=== PATIENT | female | born 1985 | race Caucasian/White ===

== ENCOUNTER 2019-07-17 06:56 | Emergency (ER) | payer MEDICAID ==
[2019-07-17 07:29] VITALS: BP 116/57; PULSE 72
--- NOTE | 2019-07-17 07:37 | EDM.PDOC ---
ED HPI GENERAL MEDICAL PROBLEM - General Chief Complaint: ENT Problem Stated Complaint: SORE THROAT AND COUGHING Time Seen by Provider: 07/17/19 07:27 - History of Present Illness INITIAL COMMENTS - FREE TEXT/NARRATIVE: HISTORY AND PHYSICAL: History of present illness: Patient is a 34-year-old white female presents with concern of sore throat sinus congestion and discomfort over last 4-5 days. She denies fever chills nausea vomiting or other complaints she states she had similar episodes in the past related to sinusitis. Review of systems: As per history of present illness and below otherwise all systems reviewed and negative. Past medical history: As per history of present illness and as reviewed below otherwise noncontributory. Surgical history: As per history of present illness and as reviewed below otherwise noncontributory. Social history: No reported history of drug or alcohol abuse. Family history: As per history of present illness and as reviewed below otherwise noncontributory. Physical exam: HEENT: Atraumatic, normocephalic, pupils reactive, negative for conjunctival pallor or scleral icterus, mucous membranes moist, throat injected, neck supple , nontender, trachea midline. Tenderness over maxillary and frontal sinuses to percussion Lungs: Clear to auscultation, breath sounds equal bilaterally, chest nontender. Heart: S1S2, regular, negative for clicks, rubs, or JVD. Abdomen: Soft, nondistended, nontender. Negative for masses or hepatosplenomegaly. Negative for costovertebral tenderness. Pelvis: Stable nontender. Genitourinary: Deferred. Rectal: Deferred. Extremities: Atraumatic, negative for cords or calf pain. Neurovascular unremarkable. Neuro: Awake, alert, oriented. Cranial nerves II through XII unremarkable. Cerebellum unremarkable. Motor and sensory unremarkable throughout. Exam nonfocal. Diagnostics: None Therapeutics: None Impression: #1 sinusitis #2 pharyngitis Definitive disposition and diagnosis as appropriate pending reevaluation and review of above. Nare Pain Score (Numeric/FACES): 4 - Related Data Allergies Allergy/AdvReac Type Severity Reaction Status Date / Time amoxicillin Allergy Hives Verified 02/04/19 19:27 Penicillins Allergy Hives Verified 02/04/19 19:27 Home Meds: Home Meds Omeprazole Magnesium [Prilosec Otc] 1 tab PO DAILY 06/27/15 [History] Vit No.78/Iron/Fa [Prenatabs FA] 1 tab PO DAILY 06/27/15 [History] ARIPiprazole [Abilify] 2 mg PO DAILY 02/04/19 [History] Cetirizine HCl [Zyrtec] 10 mg PO DAILY 02/04/19 [History] Dextroamphetamine/Amphetamine [Adderall 20 mg Tablet] 20 mg PO BID 02/04/19 [ History] FLUoxetine HCl [Prozac] 40 mg PO DAILY 02/04/19 [History] clonazePAM [Klonopin] 1 mg PO ASDIRECTED 02/04/19 [History] Past Medical History Cardiovascular History: Reports: None Respiratory History: Reports: Asthma Other Gastrointestinal History: Heartburn in pregnancies only Genitourinary History: Reports: None 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 Musculoskeletal History: Hx: fractured wrist, nose Neurological History: Reports: Migraines 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, none for a few years now Psychiatric History: Reports: ADD, Anxiety, Depression, PTSD - Infectious Disease History Infectious Disease History: Reports: Chicken Pox - Past Surgical History HEENT Surgical History: Reports: Adenoidectomy, Tonsillectomy Other HEENT Surgeries/Procedures: Septoplasty Female Surgical History: Reports: Breast Implant, Section Other Musculoskeletal Surgeries/Procedures:: History of Breast Augmentation Social & Family History - Caffeine Use Caffeine Use: Reports: Coffee ED ROS GENERAL - Review of Systems Review Of Systems: ROS reveals no pertinent complaints other than HPI. ED EXAM, GENERAL - Physical Exam Exam: See Below (See dictation) Course - Vital Signs Last Recorded V/S: Last Vital Signs Temp 35.9 C 07/17/19 07:24 Pulse 72 07/17/19 07:24 Resp 18 07/17/19 07:24 BP 116/57 L 07/17/19 07:24 Pulse Ox 99 07/17/19 07:24 Departure - Departure Time of Disposition: 07:36 Disposition: Home, Self-Care 01 Condition: Good Clinical Impression: Sinusitis, Pharyngitis - Discharge Information Referrals: PCP,None [Primary Care Provider] - Additional Instructions: The following information is given to patients seen in the emergency department who are being discharged to home. This information is to outline your options for follow-up care. We provide all patients seen in our emergency department with a follow-up referral. The need for follow-up, as well as the timing and circumstances, are variable depending upon the specifics of your emergency department visit. If you don't have a primary care physician on staff, we will provide you with a referral. We always advise you to contact your personal physician following an emergency department visit to inform them of the circumstance of the visit and for follow-up with them and/or the need for any referrals to a consulting specialist. The emergency department will also refer you to a specialist when appropriate. This referral assures that you have the opportunity for followup care with a specialist. All of these measure are taken in an effort to provide you with optimal care, which includes your followup. Under all circumstances we always encourage you to contact your private physician who remains a resource for coordinating your care. When calling for followup care, please make the office aware that this follow-up is from your recent emergency room visit. If for any reason you are refused follow-up, please contact the [facility] emergency department at and asked to speak to the emergency department charge nurse. Z-Marco as prescribed Tylenol with Codeine as prescribed follow-up primary medical doctor as needed as discussed and return as needed as discussed
== END 2019-07-17 08:20 | disposition home or self-care (01) ==
LOC: MW.ED 06:56
DX: J32.9 Chronic sinusitis, unspecified (principal); J02.9 Acute pharyngitis, unspecified; J45.909 Unspecified asthma, uncomplicated; F32.9 Major depressive disorder, single episode, unspecified; F41.9 Anxiety disorder, unspecified; Z88.0 Allergy status to penicillin; Z79.899 Other long term (current) drug therapy
CPT/HCPCS: 99282; 99283

== ENCOUNTER 2019-08-08 15:49 | Emergency (ER) | payer MEDICAID ==
--- NOTE | 2019-08-08 16:09 | EDM.PDOCBH ---
ED HPI GENERAL MEDICAL PROBLEM - General Chief Complaint: Behavioral/Psych Stated Complaint: panic attack; needs meds refilled Time Seen by Provider: 08/08/19 15:53 Source of Information: Reports: Patient History Limitations: Reports: No Limitations - History of Present Illness INITIAL COMMENTS - FREE TEXT/NARRATIVE: HISTORY AND PHYSICAL: History of present illness: Patient is a 34-year-old female who presents to the emergency room with complaints of anxiety and needing a medication refill. Patient states she has been out of her Klonopin for 3 days and is here in hopes to get this medication refilled. Just prior to my physical examination she states she got off the phone with her primary care provider, Fozia Gomez, who will refill her Klonopin. Patient states she was hoping to get "something right now to take the edge off" until she can go and fill this prescription. She states she has increased stress as she has been fighting with her significant other. Patient denies any fever, chills, headache, change in vision, syncope or near syncope. Denies any chest pain, back pain, shortness of breath or cough. Denies any GI or symptoms. Patient has been eating and drinking appropriately. Review of systems: As per history of present illness and below otherwise all systems reviewed and negative. Past medical history: As per history of present illness and as reviewed below otherwise noncontributory. Surgical history: As per history of present illness and as reviewed below otherwise noncontributory. Social history: See social history for further information Family history: As per history of present illness and as reviewed below otherwise noncontributory. Physical exam: General: Well-developed and well nourished 34-year-old female. Alert and appropriate for age. Nontoxic appearing and in no acute distress. HEENT: Atraumatic, normocephalic, pupils equal and reactive bilaterally, negative for conjunctival pallor or scleral icterus, mucous membranes moist, TMs normal bilaterally, throat clear, neck supple, nontender, trachea midline. No drooling or trismus noted. No meningeal signs. No hot potato voice noted. Lungs: Clear to auscultation, breath sounds equal bilaterally, chest nontender. Heart: S1S2, regular rate and rhythm without overt murmur Abdomen: Soft, nondistended, nontender. Skin: Intact, warm, dry. No lesions or rashes noted. Extremities: Atraumatic, moves all extremities per self without difficulty or deficits, negative for cords or calf pain. Neurovascular unremarkable. Neuro: Awake, alert, oriented. Cranial nerves II through XII unremarkable. Cerebellum unremarkable. Motor and sensory unremarkable throughout. Exam nonfocal. Notes: Will give one tab of Ativan now. She has an appointment on Aug 16 with Patricia. Supportive care measures were reviewed and discussed. Voices understanding and is agreeable to plan of care. Denies any further questions or concerns at this time. Diagnostics: None Therapeutics: Ativan Prescription: None Impression: Anxiety Encounter for medication refill Plan: 1. Please see your primary care provider for further medication refills. 2. Return to the ED as needed and as discussed. Definitive disposition and diagnosis as appropriate pending reevaluation and review of above. - Related Data Allergies Allergy/AdvReac Type Severity Reaction Status Date / Time amoxicillin Allergy Hives Verified 08/08/19 16:05 Penicillins Allergy Hives Verified 08/08/19 16:05 Home Meds: Home Meds Omeprazole Magnesium [Prilosec Otc] 1 tab PO DAILY 06/27/15 [History] Vit No.78/Iron/Fa [Prenatabs FA] 1 tab PO DAILY 06/27/15 [History] ARIPiprazole [Abilify] 2 mg PO DAILY 02/04/19 [History] Cetirizine HCl [Zyrtec] 10 mg PO DAILY 02/04/19 [History] Dextroamphetamine/Amphetamine [Adderall 20 mg Tablet] 20 mg PO BID 02/04/19 [ History] FLUoxetine HCl [Prozac] 40 mg PO DAILY 02/04/19 [History] clonazePAM [Klonopin] 1 mg PO ASDIRECTED 02/04/19 [History] Past Medical History Cardiovascular History: Reports: None Respiratory History: Reports: Asthma Other Gastrointestinal History: Heartburn in pregnancies only Genitourinary History: Reports: None 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 Musculoskeletal History: Hx: fractured wrist, nose Neurological History: Reports: Migraines 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, none for a few years now Psychiatric History: Reports: ADD, Anxiety, Depression, PTSD - Infectious Disease History Infectious Disease History: Reports: Chicken Pox - Past Surgical History HEENT Surgical History: Reports: Adenoidectomy, Tonsillectomy Other HEENT Surgeries/Procedures: Septoplasty Female Surgical History: Reports: Breast Implant, Section Other Musculoskeletal Surgeries/Procedures:: History of Breast Augmentation Social & Family History - Family History Family Medical History: Noncontributory - Tobacco Use Smoking Status *Q: Never Smoker - Caffeine Use Caffeine Use: Reports: Coffee - Recreational Drug Use Recreational Drug Use: No ED ROS GENERAL - Review of Systems Review Of Systems: ROS reveals no pertinent complaints other than HPI. ED EXAM, BEHAVIORAL HEALTH - Physical Exam Exam: See Below (See dictation) COURSE, BEHAVIORAL HEALTH COMP - Course Vital Signs: Last Vital Signs Temp 97.0 F 08/08/19 15:59 Pulse 65 08/08/19 15:59 Resp 18 08/08/19 15:59 BP 130/57 L 08/08/19 15:59 Pulse Ox 100 08/08/19 15:59 Orders, Labs, Meds: Medications Discontinued Medications Generic Name Dose Route Start Last Admin Trade Name Freq PRN Reason Stop Dose Admin Lorazepam 1 mg 08/08/19 16:17 Ativan PO 08/08/19 16:18 ONETIME ONE Departure - Departure Time of Disposition: 16:18 Disposition: Home, Self-Care 01 Clinical Impression: Anxiety, Encounter for medication refill - Discharge Information Instructions: Panic Attack Referrals: PCP,Not In Area [Primary Care Provider] - Forms: ED Department Discharge Additional Instructions: The following information is given to patients seen in the emergency department who are being discharged to home. This information is to outline your options for follow-up care. We provide all patients seen in our emergency department with a follow-up referral. The need for follow-up, as well as the timing and circumstances, are variable depending upon the specifics of your emergency department visit. If you don't have a primary care physician on staff, we will provide you with a referral. We always advise you to contact your personal physician following an emergency department visit to inform them of the circumstance of the visit and for follow-up with them and/or the need for any referrals to a consulting specialist. The emergency department will also refer you to a specialist when appropriate. This referral assures that you have the opportunity for follow-up care with a specialist. All of these measure are taken in an effort to provide you with optimal care, which includes your follow-up. Under all circumstances we always encourage you to contact your private physician who remains a resource for coordinating your care. When calling for follow-up care, please make the office aware that this follow-up is from your recent emergency room visit. If for any reason you are refused follow-up, please contact the [facility] Emergency Department at and asked to speak to the emergency department charge nurse. [facility] [address] [place] [id number] [facility] [address] [place] [id number] 1. Please see your primary care provider for further medication refills. 2. Return to the ED as needed and as discussed.
[2019-08-08] MEDS ORDERED: LORazepam 1 MG Tab PO ONE (16:17)
[2019-08-08 17:12] VITALS: BP 132/76; PULSE 69
== END 2019-08-08 17:09 | disposition home or self-care (01) ==
LOC: MW.ED 15:49
DX: F41.9 Anxiety disorder, unspecified (principal); Z76.0 Encounter for issue of repeat prescription; J45.909 Unspecified asthma, uncomplicated; F32.9 Major depressive disorder, single episode, unspecified; Z88.1 Allergy status to other antibiotic agents
CPT/HCPCS: 99282; A9270

== ENCOUNTER 2019-08-25 17:05 | Emergency (ER) | payer MEDICAID ==
[2019-08-25 17:21] VITALS: PULSE 76
--- NOTE | 2019-08-25 17:23 | EDM.PDOC ---
ED HPI GENERAL MEDICAL PROBLEM - General Chief Complaint: ENT Problem Stated Complaint: SORE THROAT Time Seen by Provider: 08/25/19 17:22 Source of Information: Reports: Patient - History of Present Illness INITIAL COMMENTS - FREE TEXT/NARRATIVE: HISTORY AND PHYSICAL: History of present illness: []Patient presents with recurrent sore throat she has been on 2 rounds of Z-Marco antibiotics , she has had some benefit while on the antibiotic sore throat returned shortly after no fever nausea vomiting chills sweats she does complain of general malaise or muffled voice drooling or trismus Review of systems: As per history of present illness and below otherwise all systems reviewed and negative. Past medical history: As per history of present illness and as reviewed below otherwise noncontributory. Surgical history: As per history of present illness and as reviewed below otherwise noncontributory. Social history: No reported history of drug or alcohol abuse. Family history: As per history of present illness and as reviewed below otherwise noncontributory. Physical exam: HEENT: Atraumatic, normocephalic, pupils reactive, negative for conjunctival pallor or scleral icterus, mucous membranes moist, throat clear, neck supple, nontender, trachea midline. Moderate erythema no exudates Lungs: Clear to auscultation, breath sounds equal bilaterally, chest nontender. Heart: S1S2, regular, negative for clicks, rubs, or JVD. Abdomen: Soft, nondistended, nontender. Negative for masses or hepatosplenomegaly. Negative for costovertebral tenderness. Pelvis: Stable nontender. Genitourinary: Deferred. Rectal: Deferred. Extremities: Atraumatic, negative for cords or calf pain. Neurovascular unremarkable. Neuro: Awake, alert, oriented. Cranial nerves II through XII unremarkable. Cerebellum unremarkable. Motor and sensory unremarkable throughout. Exam nonfocal. Diagnostics: [CBC [place] UA hCG Influenza/strep swabs ] Therapeutics: [Bactrim] Impression: [Pharyngitis ] Definitive disposition and diagnosis as appropriate pending reevaluation and review of above. throat Pain Score (Numeric/FACES): 4 - Related Data Allergies Allergy/AdvReac Type Severity Reaction Status Date / Time amoxicillin Allergy Hives Verified 08/25/19 17:20 Penicillins Allergy Hives Verified 08/25/19 17:20 Home Meds: Home Meds Omeprazole Magnesium [Prilosec Otc] 1 tab PO DAILY 06/27/15 [History] Vit No.78/Iron/Fa [Prenatabs FA] 1 tab PO DAILY 06/27/15 [History] ARIPiprazole [Abilify] 2 mg PO DAILY 02/04/19 [History] Cetirizine HCl [Zyrtec] 10 mg PO DAILY 02/04/19 [History] Dextroamphetamine/Amphetamine [Adderall 20 mg Tablet] 20 mg PO BID 02/04/19 [ History] FLUoxetine HCl [Prozac] 40 mg PO DAILY 02/04/19 [History] clonazePAM [Klonopin] 1 mg PO ASDIRECTED 02/04/19 [History] Past Medical History Cardiovascular History: Reports: None Respiratory History: Reports: Asthma Other Gastrointestinal History: Heartburn in pregnancies only Genitourinary History: Reports: None 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 Musculoskeletal History: Hx: fractured wrist, nose Neurological History: Reports: Migraines 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, none for a few years now Psychiatric History: Reports: ADD, Anxiety, Depression, PTSD - Infectious Disease History Infectious Disease History: Reports: Chicken Pox - Past Surgical History HEENT Surgical History: Reports: Adenoidectomy, Tonsillectomy Other HEENT Surgeries/Procedures: Septoplasty Female Surgical History: Reports: Breast Implant, Section Other Musculoskeletal Surgeries/Procedures:: History of Breast Augmentation Social & Family History - Family History Family Medical History: Noncontributory - Caffeine Use Caffeine Use: Reports: Coffee ED ROS GENERAL - Review of Systems Review Of Systems: See Below ED EXAM, GENERAL - Physical Exam Exam: See Below Course - Vital Signs Last Recorded V/S: Last Vital Signs Temp 97.7 F 08/25/19 17:18 Pulse 76 08/25/19 17:18 Resp 18 08/25/19 17:18 BP 127/56 L 08/25/19 17:18 Pulse Ox 98 08/25/19 17:18 - Orders/Labs/Meds Orders: Active Orders 24 hr Category Date Time Status CULTURE STREP A CONFIRMATION [] Stat Lab 08/25/19 17:34 Results STREP SCRN A RAPID W CULT CONF [] Stat Lab 08/25/19 17:34 Results Labs: Laboratory Tests 08/25/19 08/25/19 08/25/19 Range/Units 17:22 17:22 17:41 WBC 6.92 (4.0-11.0) K/uL RBC 4.42 (4.30-5.90) M/uL Hgb 13.4 (12.0-16.0) g/dL Hct 39.0 (36.0-46.0) % MCV 88.2 (80.0-98.0) fL MCH 30.3 (27.0-32.0) pg MCHC 34.4 (31.0-37.0) g/dL RDW Std Deviation 42.8 (28.0-62.0) fl RDW Coeff of Alvaro 13 (11.0-15.0) % Plt Count 233 (150-400) K/uL MPV 11.00 (7.40-12.00) fL Neut % (Auto) 48.4 (48.0-80.0) % Lymph % (Auto) 35.3 (16.0-40.0) % [place] % (Auto) 8.7 (0.0-15.0) % Eos % (Auto) 6.9 (0.0-7.0) % Baso % (Auto) 0.7 (0.0-1.5) % Neut # (Auto) 3.4 (1.4-5.7) K/uL Lymph # (Auto) 2.4 (0.6-2.4) K/uL [place] # (Auto) 0.6 (0.0-0.8) K/uL Eos # (Auto) 0.5 (0.0-0.7) K/uL Baso # (Auto) 0.1 (0.0-0.1) K/uL Nucleated RBC % 0.0 /100WBC Nucleated RBCs # 0 K/uL Urine Color YELLOW Urine Appearance CLEAR Urine pH 7.0 (5.0-8.0) Ur Specific [place] 1.015 (1.001-1.035) Urine Protein NEGATIVE (NEGATIVE) mg/dL Urine Glucose (UA) NEGATIVE (NEGATIVE) mg/dL Urine Ketones NEGATIVE (NEGATIVE) mg/dL Urine Occult Blood NEGATIVE (NEGATIVE) Urine Nitrite NEGATIVE (NEGATIVE) Urine Bilirubin NEGATIVE (NEGATIVE) Urine Urobilinogen 0.2 (<2.0) EU/dL Ur Leukocyte Esterase NEGATIVE (NEGATIVE) Urine HCG, Qual NEGATIVE (NEGATIVE) Monoscreen (NEG) 08/25/19 Range/Units 17:41 WBC (4.0-11.0) K/uL RBC (4.30-5.90) M/uL Hgb (12.0-16.0) g/dL Hct (36.0-46.0) % MCV (80.0-98.0) fL MCH (27.0-32.0) pg MCHC (31.0-37.0) g/dL RDW Std Deviation (28.0-62.0) fl RDW Coeff of Alvaro (11.0-15.0) % Plt Count (150-400) K/uL MPV (7.40-12.00) fL Neut % (Auto) (48.0-80.0) % Lymph % (Auto) (16.0-40.0) % [place] % (Auto) (0.0-15.0) % Eos % (Auto) (0.0-7.0) % Baso % (Auto) (0.0-1.5) % Neut # (Auto) (1.4-5.7) K/uL Lymph # (Auto) (0.6-2.4) K/uL [place] # (Auto) (0.0-0.8) K/uL Eos # (Auto) (0.0-0.7) K/uL Baso # (Auto) (0.0-0.1) K/uL Nucleated RBC % /100WBC Nucleated RBCs # K/uL Urine Color Urine Appearance Urine pH (5.0-8.0) Ur Specific [place] (1.001-1.035) Urine Protein (NEGATIVE) mg/dL Urine Glucose (UA) (NEGATIVE) mg/dL Urine Ketones (NEGATIVE) mg/dL Urine Occult Blood (NEGATIVE) Urine Nitrite (NEGATIVE) Urine Bilirubin (NEGATIVE) Urine Urobilinogen (<2.0) EU/dL Ur Leukocyte Esterase (NEGATIVE) Urine HCG, Qual (NEGATIVE) Monoscreen NEGATIVE (NEG) Departure - Departure Time of Disposition: 18:18 Disposition: Home, Self-Care 01 Preliminary Cause of *Q: Sepsis & Multi System Organ Failure Clinical Impression: Pharyngitis - Discharge Information Referrals: Fozia Gomez NP [Primary Care Provider] - Forms: ED Department Discharge Additional Instructions: The following information is given to patients seen in the emergency department who are being discharged to home. This information is to outline your options for follow-up care. We provide all patients seen in our emergency department with a follow-up referral. The need for follow-up, as well as the timing and circumstances, are variable depending upon the specifics of your emergency department visit. If you don't have a primary care physician on staff, we will provide you with a referral. We always advise you to contact your personal physician following an emergency department visit to inform them of the circumstance of the visit and for follow-up with them and/or the need for any referrals to a consulting specialist. The emergency department will also refer you to a specialist when appropriate. This referral assures that you have the opportunity for follow-up care with a specialist. All of these measure are taken in an effort to provide you with optimal care, which includes your follow-up. Under all circumstances we always encourage you to contact your private physician who remains a resource for coordinating your care. When calling for follow-up care, please make the office aware that this follow-up is from your recent emergency room visit. If for any reason you are refused follow-up, please contact the [facility] emergency department at and asked to speak to the emergency department charge nurse. - My Orders Last 24 Hours: My Active Orders 08/25/19 17:34 CULTURE STREP A CONFIRMATION [RM] Stat STREP SCRN A RAPID W CULT CONF [RM] Stat - Assessment/Plan Last 24 Hours: My Active Orders 08/25/19 17:34 CULTURE STREP A CONFIRMATION [RM] Stat STREP SCRN A RAPID W CULT CONF [RM] Stat
[2019-08-25 18:44] VITALS: BP 130/64
== END 2019-08-25 18:38 | disposition home or self-care (01) ==
LOC: MW.ED 17:05
DX: J02.9 Acute pharyngitis, unspecified (principal); F41.9 Anxiety disorder, unspecified; F32.9 Major depressive disorder, single episode, unspecified; J45.909 Unspecified asthma, uncomplicated; Z79.899 Other long term (current) drug therapy; Z88.0 Allergy status to penicillin; Z88.1 Allergy status to other antibiotic agents
CPT/HCPCS: 36415; 81003; 81025; 85025; 86308; 87081; 87804; 87880-QW; 99283

== ENCOUNTER 2019-08-30 15:22 | Emergency (ER) | payer MEDICAID ==
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
[2019-08-30] MEDS ORDERED: Bacitracin Oint 1 GM U/D Packet TOP ONE (15:31)
[2019-08-30] MEDS ORDERED: Lidocaine 1% PF 2 ML SDV INJECT ONE (15:31)
[2019-08-30 15:40] VITALS: BP 130/67; PULSE 71
== END 2019-08-30 16:05 | disposition home or self-care (01) ==
LOC: MW.ED 15:22
DX: S61.211A Laceration without foreign body of left index finger without damage to nail, initial encounter (principal); Z88.1 Allergy status to other antibiotic agents; Z88.0 Allergy status to penicillin; Z79.899 Other long term (current) drug therapy; Z98.890 Other specified postprocedural states; W26.0XXA Contact with knife, initial encounter
CPT/HCPCS: 99282